=== PATIENT | male | born 1955 | race African-American/Black ===

== ENCOUNTER 2021-03-08 06:08 | Day surgery (SDC) | payer OTHER ==
[~2021-03-08] VITALS: Ht 175.3 cm; Wt 92.3 kg
[2021-03-08] MEDS ORDERED: CHOLESTEROL (07:07)
[2021-03-08] MEDS ORDERED: MULTI-DAY VITAM1 TAB PO (07:07)
[2021-03-08] MEDS ORDERED: LISINOPRIL20 MG PO (07:07)
[2021-03-08 07:13] VITALS: BP 148/92; Ht 175.3 cm; Wt 92.3 kg
[2021-03-08] MEDS ORDERED: XALATAN 0.0052.5 ML EACH EYE (07:14)
[2021-03-08] MEDS ORDERED: FLOMAX0.4 MG PO (07:14)
[2021-03-08 07:20] LABS: BASOPHILS 0.3 % (0-2); EOSINOPHILS 1.7 % (0-7); HEMATOCRIT 36.8 % (42.0-54.0); HEMOGLOBIN 11.4 g/dL (13.5-17.5); IMMATURE GRANULOCYTES 0.3 % (0-5); LYMPHOCYTE ABS# 1.58 10x3/uL (1.32-3.57); MCH 21.8 pg (26.0-34.0); MCV 70.4 fL (80.0-100.0); MONOCYTES 7.1 % (2-11); NEUTROPHIL ABS# 4.64 10x3/uL (1.78-5.38); NEUTROPHILS 67.6 % (40-80); PLATELET COUNT 217 10x3/uL (130-400); RBC 5.23 10x6/uL (4.20-6.10); RDW 17.5 % (11.5-14.5); WBC 6.9 10x3/uL (4.8-10.8)
[2021-03-08 07:30] LABS: ALBUMIN 4.1 g/dL (3.4-5.0); ANION GAP 13.2 mmol/L (8-16); BILIRUBIN - TOTAL 0.65 mg/dL (0.2-1.3); CALCIUM 9.5 mg/dL (8.5-10.1); CARBON DIOXIDE 27.3 mmol/L (21.0-32.0); CREATININE - SERUM 1.2 mg/dL (0.6-1.3); POTASSIUM - SERUM 3.5 mmol/L (3.5-5.1)
--- NOTE | 2021-03-08 11:03 | HP ---
PATIENT: BRANDIE KIRBY MEDICAL RECORD: [id number] ACCOUNT: [id number] LOCATION:[facility] : 53 ADMISSION DATE: 03/08/21 PCP: No PCP HISTORY AND PHYSICAL EXAMINATION CHIEF COMPLAINT: Anemia. HISTORY OF PRESENT ILLNESS: We are here to look for source of anemia. The patient was to undergo upper and lower endoscopy, but states that he did not get a bowel prep, so we will just be able to perform the upper endoscopy today. He has no hematemesis. No odynophagia. No dysphagia. No gastroesophageal reflux. He has noted blood in stool one time. No melena. No abdominal pain. The risks, possible complications, and alternatives to EGD were explained to the patient. He elects to proceed. REVIEW OF SYSTEMS: Negative for angina or myocardial infarction. Negative for diabetes or thyroid problems. PAST MEDICAL AND SURGICAL HISTORY: Glaucoma, hypertension. SOCIAL HISTORY: Nonsmoker. PHYSICAL EXAMINATION: GENERAL: The patient does not appear acutely ill. He does not appear chronically ill. VITAL SIGNS: Reviewed. EARS: External ears appear normal. EYES: Extraocular movements are intact. NECK: Trachea is midline. CHEST: No intercostal retractions. PULMONARY: Nonlabored. No stridor. IMPRESSION: Anemia. PLAN: Will be EGD. TRANSINT:[id number] Voice Confirmation ID: [id number] DOCUMENT ID: [id number] ARNOLD PETERSEN MD at 1103 CC: [id number] DICTATION DATE: 03/08/21 1039 WEB CONTENT SPECIALIST: 03/08/21 1055 [facility] [address] [place] [address]
--- NOTE | 2021-03-08 11:43 | NUR ---
DC INSTRUCTIONS GIVEN TO PT. STATES UNDERSTANDING. DC'D IV CATH FULLY INTACT. WILL DC SHORTLY
--- NOTE | 2021-03-08 11:49 | NUR ---
PT LEFT UNIT VIA WC AT 1150
--- NOTE | 2021-03-08 12:08 | OP ---
PATIENT NAME: BRANDIE KIRBY MEDICAL RECORD: [id number] :53 LOCATION:[facility] ADMISSION DATE: SURGEON: STEFAN PETERSEN MD DATE OF OPERATION: 03/08/2021 PREOPERATIVE DIAGNOSIS: Anemia. POSTOPERATIVE DIAGNOSES: 1. Anemia with multiple antral ulcers, some of which contained exudate and clot within them. 2. Moderate duodenitis. 3. Large hiatal hernia. 4. Schatzki's ring. PROCEDURE: 1. Esophagogastroduodenoscopy with antral and distal esophageal biopsies at the side of the Schatzki's ring. 2. Esophageal dilation to 54-Armenian with a ccizwop-wrk-uqjmotwe balloon. SURGEON: Stefan Petersen MD BAY STOCKER: None. BLOOD LOSS: Minimal. ANESTHESIA: IV sedation. COMPLICATIONS: None. The risks, possible complications, and alternatives of the procedure were explained to the patient. He elects to proceed. The patient did not undergo bowel prep and for this reason a colonoscopy was not performed. DESCRIPTION OF PROCEDURE: The patient was conveyed to the endoscopy suite electively on 03/08/2021. IV sedation was induced by the anesthesia staff. A bite block was inserted. A gastroscope was inserted into the mouth. It was advanced easily into the hypopharynx. The esophagus was easily intubated as were the stomach and duodenum. Upon withdrawal, retroflexed and angulus views were obtained. Antral biopsies were obtained. I then withdrew into the cardia of the stomach. I advanced saobiei-hws-prezfjar balloon. I sequentially dilated the entire length of the esophagus, including the Schatzki's ring, to 54-Armenian. The gastroscope and balloon dilator were then removed. I readvanced the gastroscope. Four quadrant biopsies were taken at the site of Schatzki's ring to help prevent it from recurring. The endoscope was then withdrawn under direct vision. The ulcer was then identified in the duodenitis, it certainly could account for the patient's anemia. I would recommend treatment with a proton pump inhibitor. We will await the results of the biopsies to see if they are positive for Helicobacter pylori. If after 8 weeks of proton pump inhibitor therapy the patient's anemia has not resolved, then I would have him return for a colonoscopy. There is no need for the patient to follow up with me in the office unless he develops a complication related to this endoscopic procedure. OPERATIVE REPORT [id number] BRANDIE KIRBY TRANSINT:[id number] Voice Confirmation ID: [id number] DOCUMENT ID: [id number] STEFAN PETERSEN MD at 1208 CC: [id number] DICTATION DATE: 03/08/21 111 COLOR CONSULTANT: 03/08/21 1140 [facility] 03/08/21 [place] [id number] [place] [id number]
== END 2021-03-08 11:50 | disposition home or self-care (01) ==
LOC: D.OPS 06:08
PROVIDERS: Anesthesiology; ATTEND Surgery
DX: D64.9 Anemia, unspecified (principal); K29.80 Duodenitis without bleeding; K44.9 Diaphragmatic hernia without obstruction or gangrene; K22.2 Esophageal obstruction; H40.9 Unspecified glaucoma; I10 Essential (primary) hypertension